=== PATIENT | male | born 1945 | race Asian ===

== ENCOUNTER → 2021-10-16 | Outpatient (CLI) | payer MEDICAID ==
[2021-10-16 17:14] LABS: HEMOGLOBIN 10.6 gm/dl (14.0-17.5); RED BLOOD COUNT 3.07 M/UL (4.20-5.50)
== END ==
LOC: LAB 15:53
PROVIDERS: Internal Medicine
DX: D75.839 Thrombocytosis, unspecified (principal)
CPT/HCPCS: 36415; 81219; 81270; 81402; 82728; 83540; 83550; 85027

== ENCOUNTER 2022-03-21 12:39 | Outpatient (CLI) | payer OTHER ==
[~2022-03-21] VITALS: Ht 167.6 cm; Wt 63.5 kg
[2022-03-21 13:14] LABS: HEMOGLOBIN 6.1 gm/dl (14.0-17.5)
[2022-03-21] MEDS ORDERED: ASPIRIN EC81 MG PO (17:37)
[2022-03-21] MEDS ORDERED: LIPITOR10 MG PO (17:37)
[2022-03-21] MEDS ORDERED: CYANOCOBAL1000 MCG/1 INJ (17:38)
== END 2022-03-21 20:34 | disposition home or self-care (01) ==
LOC: OPSV 12:39 → M/S 16:14 → OPSV 20:34
PROVIDERS: Internal Medicine
DX: D64.9 Anemia, unspecified (principal); D47.3 Essential (hemorrhagic) thrombocythemia
CPT/HCPCS: 36430; 85014; 85018; 86850; 86900; 86901; 86920; 96375; J1940; P9016